=== PATIENT | male | born 1945 | race Caucasian/White ===

== ENCOUNTER 2016-11-12 10:55 | Inpatient (IN) | payer MEDICARE, OTHER ==
[~2016-11-12] VITALS: Ht 175.3 cm; Wt 140.7 kg
[~2016-11-12 10:55] MED LIST: CARV12.52 PO; DOCU100C8 PO; ESCI10TA PO; ESCI20TA PO; INSU100I23 SQ; INSU100I30 SQ; LORC10TA PO; LSNP10T PO; MAGN400O7 PO; OXYC1TAB87 PO; OXYC1TAB95 PO; POLY17PO2 PO; PREG150C PO; TAMS-8 PO
--- NOTE | 2016-11-12 11:00 | NUR ---
Pt admitted to 318 via w/c accompanied by volunteer and family. Pt c/o SOA but does not appear to be in distress. See admission database for assessment info.
--- OUTSIDE RECORDS SUMMARY | 2016-11-12 11:01 | XMS REPORT | Referral Summary ---
Author Author [facility], [facility] [place] Address Unknown Phone Unavailable Care Team Providers Care Senior Product Analyst Name Role Phone Raman Santoro PCP [phone] Encounter VC Date(s): 04/12/15 - 04/12/15 [facility] [place] [facility], [facility] [address] [place] [address]- us Discharge Disposition: 01-Home or Self Care Attending Physician: [facility] Fee, [facility] Admitting Physician: [facility] Betzaida, [facility] Vital Signs No data available for this section Problem List Condition Effective Dates Status Health Status Informant Acute Active pain(Confirmed) At risk for activity Active intolerance(Confirme d)1, 2 At risk for Active injury(Confirmed)3, 4 At risk for unstable Resolved blood glucose level(Confirmed)5 At risk of pressure Active sore(Confirmed) Bowel Resolved dysfunction(Confirme d)6 Diabetes Active mellitus(Confirmed) Fluid Active imbalance(Confirmed) 7 HTN Active (hypertension)(Confi rmed) Impaired skin Active integrity(Confirmed) 8 Impaired spontaneous Resolved ventilation(Confirme d)9 Ineffective airway Resolved clearance(Confirmed) 10 Knowledge Active deficit(Confirmed)11 LELAND on Active CPAP(Confirmed) Pressure ulcer stage Active 2(Confirmed) Urinary Active retention(Confirmed) 12 1Problem updated automatically by system based on initiation of At Risk for Activity Intolerance Plan of [id number] added automatically by system based on initiation of At Risk for Activity Intolerance Plan of [id number] updated automatically by system based on initiation of Risk for Injury Plan of [id number] added automatically by system based on initiation of Risk for Injury Plan of [id number] added automatically by system based on initiation of At Risk for Unstable Blood Glucose Plan of [id number] added automatically by system based on initiation of Bowel Dysfunction Plan of [id number] added automatically by system based on initiation of Fluid Volume Imbalance Plan of [id number] added automatically by system based on initiation of Impaired Skin Integrity Plan of [id number] added automatically by system based on initiation of Impaired Spontaneous Ventilation Plan of [id number] added automatically by system based on initiation of Ineffective Airway Clearance Plan of [id number] added automatically by system based on initiation of Knowledge Deficit Plan of [id number] added automatically by system based on initiation of Urinary Retention Plan of Care Allergies, Adverse Reactions, Alerts Substance Reaction Severity Status codeine Active Medications acetaminophen 325 mg oral tablet 650 mg 2 tabs, Oral, q4hr, Pain Mild (1-3), 0 Refill(s) Start Date: 04/13/15 Status: OrderedamLODIPine 5 mg oral tablet 5 mg 1 tabs, Oral, Daily, 0 Refill(s) Start Date: 05/09/15 Status: OrderedAugmentin 875 mg-125 mg oral tablet 1 tabs, Oral, q12hr, 0 Refill(s) Start Date: 05/09/15 Stop Date: 05/18/15 Status: OrderedCoreg 3.125 mg oral tablet 3.125 mg 1 tabs, Oral, BIDWM, 0 Refill(s) Start Date: 04/22/15 Status: Ordereddexamethasone 4 mg oral tablet See Instructions, 4mg po q12hr 05/10; 4mg po q24hr 05/11-05/12 2mg po q24hr 05/13-05/14 #QS, 0 Refill(s) Start Date: 05/06/15 Status: OrderedDulcolax Laxative 10 mg rectal suppository 10 mg 1 supp, Rectal, BID, Constipation, 0 Refill(s) Start Date: 04/13/15 Status: OrderedFlomax 0.4 mg oral capsule 0.4 mg 1 caps, Oral, Daily, 30 minutes after the same meal, # 30 caps, 0 Refill( s) Start Date: 02/24/14 Status: OrderedLevemir 100 units/mL subcutaneous solution 30 units, SubCutaneous, BID, 0 Refill(s) Start Date: 02/24/14 Status: Orderedlidocaine 5% topical film 1 patches, TransDermal, Daily, # 30 patches, 0 Refill(s) Start Date: 04/27/15 Status: OrderedLyrica 75 mg oral capsule 75 mg 1 caps, Oral, BID, 0 Refill(s) Start Date: 04/22/15 Status: Orderedmagnesium oxide 400 mg (241.3 mg elemental magnesium) oral tablet 400 mg 1 tabs, Oral, BID, 0 Refill(s) Start Date: 05/06/15 Status: Orderedmiconazole 2% topical powder 1 israel, Topical, BID, 0 Refill(s) Start Date: 04/25/15 Status: OrderedMiraLax 17 g, Oral, Daily, 0 Refill(s) Start Date: 05/04/15 Status: OrderedNovoLOG 100 units/mL subcutaneous solution 10 units, SubCutaneous, TIDAC, 0 Refill(s) Start Date: 04/25/15 Status: OrderedTums 500 mg oral tablet, chewable 500 mg 1 tabs, Oral, q4hr, GERD/Heartburn, 0 Refill(s) Start Date: 04/13/15 Status: Orderedvenlafaxine 37.5 mg oral tablet 37.5 mg 1 tabs, Oral, BID, 0 Refill(s) Start Date: 05/04/15 Status: OrderedZofran 4 mg oral tablet 4 mg 1 tabs, Oral, q6hr, Nausea, 0 Refill(s) Start Date: 04/13/15 Status: Ordered Results No data available for this section Immunizations Vaccine Date Refusal Reason influenza virus vaccine, inactivated 04/21/15 Procedures Procedure Date Related Diagnosis Body Site Laminectomy Decompression (Thoracic)1 04/06/15 Cholecystectomy 07/22/75 Tonsillectomy 07/22/51 1auto-populated from documented surgical case Social History Social History Type Response Smoking Status Never smoker Assessment and Plan No data available for this section
[2016-11-12 11:17] VITALS: BP 189/90
[2016-11-12] MEDS ORDERED: PROMETHAZINE HCL INJ 12.5 MG in SODIUM CHLORIDE 25 ML IV PRN (11:35)
[2016-11-12] MEDS ORDERED: DOCUSATE SODIUM 100 MG (COLACE) CAP PO PRN (11:35)
[2016-11-12] MEDS ORDERED: POLYETHYLENE GLYCOL 17 GM (MIRALAX) PACKET PO PRN (11:35)
[2016-11-12] MEDS ORDERED: CALCIUM CARBONATE CHEWABLE 300 MG (TUMS) TABLET PO PRN (11:35)
[2016-11-12] MEDS ORDERED: MAG HYDROX/AL HYDROX/SIMETH 200-200-20/5 ML (MAG-AL PLUS) 30 ML UDC PO PRN (11:35)
[2016-11-12] MEDS ORDERED: ONDANSETRON 4 MG (ZOFRAN) ORAL DISSOLVE TAB PO PRN (11:35)
[2016-11-12] MEDS ORDERED: MAGNESIUM HYDROXIDE 80MG/ML (MILK OF MAGNESIA) 30 ML UDC PO PRN (11:35)
[2016-11-12] MEDS ORDERED: NS FLUSH 3 ML PRN IV (12:00)
[2016-11-12] MEDS ORDERED: NS FLUSH 10 ML PRN IV (12:00)
[2016-11-12 12:03] VITALS: BP 189/90
[2016-11-12] MEDS ORDERED: DEXTROSE 50% 25 GM/50 ML SYRINGE IV PRN (13:20)
[2016-11-12] MEDS ORDERED: GLUCAGON EMERGENCY 1 MG/KIT IM PRN (13:20)
[2016-11-12] MEDS ORDERED: DEXTROSE ORAL GEL (GLUTOSE 40%) 15 GM TUBE PO PRN (13:20)
--- NOTE | 2016-11-12 13:28 | History and Physical (E) ---
History & Physical PCP: Juventino Santoro MD CC: Cough, shortness of breath, fever, diarrhea HPI Gomez Green is a 70 year old male admitted from clinic 11/12 where he was seen for complaints of cough, dyspnea, fever, and diarrhea. Onset of cough was roughly 11/08. Non-productive but persistent now to the point of sore throat. Coughed so much that he had post-tussive emesis. Started having diarrhea 11/10. Has continued through the weekend. Has foul odor and he was immediately concerned about C diff because he has had this before. Has not recently been on antibiotic. Has had LINDA. Has had fever at home, 102 at one point. At home, took some acetaminophen but no other OTC medications. In office today, WBC normal at 8.9 with Hgb 12.1. Plt 164. Chemistry was notable for BUN 31, Cr 2.2. CRP was quite high at 23.05. BNP was not elevated. Strep screen was negative. CXR showed cardiomegaly but no overt pneumonia. On arrival to unit, awake, alert, interactive, oriented. Related history well as outlined above. SpO2 was mildly low at 89-90% so he was placed on 1 L NC. PMH * Diabetes Mellitus Type II * Kidney stones * Prostate cancer - s/p radiation, implants * HTN - recently stopped taking carvedilol due to hypotension * Morbid obesity * Bronchitis * LELAND on CPAP * History of thoracic spinal cord compression * Cervical discitis s/p prolonged antibiotic therapy. Saw Idalia Jessica MD, in [place] for this. * Clostridium difficile infection. PSH * Cholecystectomy * Left Achilles tendon repair * T1/T2 laminectomy due to compression * Spinal biopsy * Penis surgery x 2 ALLERGIES: Please see list at end of report. HOME MEDICATIONS: Please see list at end of report. FH Mom "organ shutdown." She apparently had no cancer or chronic health conditions, liver abscess. Father of colon cancer. Once sister had breast cancer. SH Lives with in their home in [place]. 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 Denies smoking. Drinks alcohol occasionally. No drug use. ROS CONSTITUTION: Weight stable. HEENT: No change in vision or hearing. No sores in mouth. Has had sore throat. Pain in right ear. CV: No chest pain, palpitations. PULM: Per HPI, exam. GI: Nausea and diarrhea. : Some intermittent dysuria in the last few days. MS: No new muscle or joint aches and pains. NEURO: No numbness or tingling. No weakness. INTEG: No rashes, lesions, or sores. ENDO: No heat or cold intolerance. No polydipsia or polyuria. HEME/LYMPH: No easy bruising or bleeding. No swollen glands. PSYCH: No change in mood or behavior. OBJECTIVE Vital Signs Date Time Temp Pulse Resp B/P Pulse Ox O2 Delivery O2 Flow Rate FiO2 11/12/16 12:03 98.8 90 18 189/90 90 Room air 0.00 90 GEN: Awake, alert, oriented. Appears tired. HEENT: EOMI, clear sclerae, mildly dry oral mucosa. No cervical lymphadenopathy. TMs clear bilaterally. Left canal mildly hyperemic. CV: RRR S1 S2 normal with no murmur LUNGS: Coarse rales bilaterally. ABD: Soft, NT/ND with normal bowel sounds. EXTR: 3+ BLE pitting edema with chronic venous stasis changes. INTEG: No new rash. NEURO: No focal motor neuro deficit. Weight: 142.1 kg LABS (Reviewed from clinic:) 11/12 CBC: WBC 8.9, Hgb 12.1, Plt 164 11/12 CMP: Na 135, K 4.9, Cl 101, CO2 21, BUN 31, Cr 2.2, Glu 414, Ca 8.3, AST 26, ALT 16, AlkP 86, Prot 6, Alb 3.3, Bili 0.8. 11/12 CRP: 23.05. 11/12 BNP: 49.7 MICRO 11/12 Blood culture PENDING 11/12 Stool PCR Panel PENDING 0424 Resp PCR Panel PENDING 11/12 Strep Screen (in office) Negative IMAGING 11/12: Imaging from clinic still pending. ASSESSMENT Gomez Green is a 71 year old male admitted from clinic 11/12 with mild acute respiratory distress with URI symptoms including cough, congestion, fever , and diarrhea. WBC was normal on admit but he had elevated CRP. Differential includes viral or bacterial pneumonia. He has history of C diff and this could be recurrent. He has several chronic problems. PLAN * Acute Respiratory Distress: Mild on admit. Oxygen protocol. IS. * Elevated CRP: Viral vs. bacterial. Check blood culture, stool PCR, resp PCR. * Upper Respiratory Infection: Clinic diagnosis. Check viral respiratory panel. Guaifenesin. IS. Follow-up CXR from clinic and consider repeating 2 view in AM. * Diarrhea: Acute. Could be viral. History of C diff. Given high CRP and history , check stool PCR panel. * Dehydration: On the basis of exam. Check UA. NS bolus ordered but he refused IV start. * Acute Kidney Injury: Cr 2.2 on admit, above baseline of about 1.5-1.8. NS bolus ordered on admit but he refused IV start. Encourage PO fluid intake. Monitor trend. * BLE Edema: Acute on chronic. Keep legs elevated. Compression hose. Diuresis deferred because he looks mildly dehydrated. * Fever: By history. Not present on admit. Acetaminophen. * LINDA: Acetaminophen. * F/E/N: IVF as above. Diabetic diet. I&O, daily weight. * Prophylaxis: Enoxaparin * Code Status: Full * Dispo: Inpatient, expecting 2-3 day stay. CHRONIC ISSUES * LELAND: Home CPAP * BPH: No longer on tamsulosin. Observe. * Morbid obesity: Observe. * BLE Edema: Compression hose. * Depression: Citalopram (sub for escitalopram). * Peripheral neuropathy: Pregabalin * Diabetes Mellitus Type II: Hyperglycemia noted on admit. Basal/bolus regimen. Sliding scale. * HLD: Fish oil Allergies/Home Medications Allergies: Coded Allergies: sulfamethoxazole (Verified Allergy, Severe, Renal failure , 11/05/13) trimethoprim (Verified Allergy, Severe, Renal failure , 11/05/13) codeine (Verified Allergy, Unknown, ANXIETY, "CRAWLING THE CEILING", ) Reported Home Medications Scheduled Cyanocobalamin (Vitamin B-12) (Vitamin B-12) 2,000 MCG PO DAILY (Reported) Escitalopram Oxalate (Lexapro) 10 MG PO DAILY (Reported) Insulin Glargine,Hum.rec.anlog (Toujeazael Solostar) 40 UNIT SQ DAILY (Reported) Insulin Lispro (Humalog) 7-9 UNIT SC TIDWM (Reported) Multivitamin (Multi-Vitamin Daily) 1 EACH PO DAILY (Reported) [place] 3 Polyunsat Fatty Acids (Fish Oil) 1,000 MG PO DAILY (Reported) Pregabalin (Lyrica) 100 MG PO BID (Reported) Discontinued Medications Cyanocobalamin (Vitamin B-12) (Vitamin B12) 2,000 MCG PO DAILY (Reported) Docusate Sodium (Docusate Sodium) 100 MG PO BID PRN PRN CONSTIPATION Discontinued Reason: Course completed Insulin Detemir (Levemir) 30 UNIT SQ BID (Reported) Discontinued Reason: Course completed Insulin Lispro (Humalog) 8-10 UNIT SQ TID WITH MEALS (Reported) Discontinued Reason: Course completed Magnesium Hydroxide (Milk of Magnesia 400mg/5ml) 30 ML PO BID PRN PRN CONSTIPATION Discontinued Reason: Course completed Oxycodone HCl/Acetaminophen (Endocet) 1-2 TAB PO Q6H PRN PRN PAIN Discontinued Reason: Course completed Polyethylene Glycol 3350 (Miralax) 17 GM PO DAILY PRN PRN CONSTIPATION Discontinued Reason: Course completed Pregabalin (Lyrica) 100 MG PO BID (Reported) Discontinued Reason: Course completed Copies to: End of Report . ALBA FINNEY MD Nov 12, 2016 13:27
[2016-11-12] MEDS ORDERED: PREG100C2 PO (14:18)
[2016-11-12] MEDS ORDERED: OMG1KC PO (14:19)
[2016-11-12] MEDS ORDERED: MULT-955 PO (14:20)
[2016-11-12] MEDS ORDERED: CYAN250014 PO (14:20)
[2016-11-12] MEDS ORDERED: INSU300I SQ (14:21)
--- NOTE | 2016-11-12 14:21 | NUR ---
MULTIDISCIPLINARY MTG/DR. FINNEY: Pt. was a direct admit from the clinic. Pt. has had a respiratory illness and then developed diarrhea. WBC was normal but his CRP is high. Waiting on further lab results. to review Pt. chest x-ray. Will check for c-diff since Pt. has had in the past. Pt. okay to wear his home CPAP and compression hose. No discharge needs identified at this time.
[2016-11-12] MEDS ORDERED: INSU100I23 SC (14:22)
[2016-11-12 14:33] LABS: BILIRUBIN,URINE Negative (Negative); CLARITY,URINE Clear; COLOR,URINE Yellow; GLUCOSE, URINE (UA) 3+ (Negative); LEUKOCYTE ESTERASE ,URINE Negative (Negative); PH,URINE 5.5 (5.0 - 8.0); UROBILINOGEN,URINE 0.2 mg/dL (0.2-1.0)
[2016-11-12 14:54] LABS: URINE CENTRIFUGED VOLUME 12 mL
[2016-11-12] MEDS ORDERED: CYAN200014 PO (15:12)
--- NOTE | 2016-11-12 15:13 | NUR ---
MED REC COMPLETE--current med list obtained from patient interview conducted by Greg Solis, Pharm. D. Candidate 2017.
[2016-11-12 15:55] VITALS: BP 186/70
--- NOTE | 2016-11-12 16:57 | NUR ---
Pt refuses IV start. States "I do NOT want an IV". Pt was quite adamant about this. Rosy notified; okay to have no IV access. Encouraged pt to drink plenty of fluids.
--- NOTE | 2016-11-12 18:45 | NUR ---
Pt rests in chair at this time. Denies needs. Skin warm dry, intact. Resprs nonlabored, even on 1L NC. Pt is up ad eliot in room. Droplet and contact precautions in place. Call light within reach.
[2016-11-12] MEDS: INSULIN LISPRO 1 UNIT/0.01 ML (HUMALOG) DOSE SC SCH ×3 (18:47→22:15)
[2016-11-12] MEDS: COMPOUNDED BY PHARMACY PO SCH (21:00)
[2016-11-12] MEDS ORDERED: INSULIN GLARGINE 1 UNIT/0.01ML (LANTUS) DOSE SC SCH (21:00)
--- NOTE | 2016-11-12 22:00 | NUR ---
Patient has been up in chair all evening in no apparent distress. Is currently on RA. States he does get real short of air walking to the bathroom. Lungs diminished and tight sounding. Denies sputum. Denies diarrhea since admit. C/O cold then hot, but denies pain.
[2016-11-12] MEDS: PREGABALIN 100 MG (LYRICA) CAPSULE PO SCH (22:11)
[2016-11-12] MEDS: VANCOMYCIN 250 MG/5 ML PO SCH (22:11)
[2016-11-12] MEDS: guaiFENesin ER 600 MG (MUCINEX) TAB PO SCH (22:11)
[2016-11-12] MEDS ORDERED: INSULIN LISPRO 1 UNIT/0.01 ML (HUMALOG) DOSE SC ONE (22:25)
--- NOTE | 2016-11-12 22:25 | NUR ---
Humalog 10 units documented on SS insulin MAR record rather than the one time order.
[2016-11-13 00:04] VITALS: BP 176/82
--- NOTE | 2016-11-13 06:07 | NUR ---
Pt rests in chair throughout the night. Denies pain. Uses home CPAP. No needs at this time.
[2016-11-13 06:17] LABS: BASOPHILS % (AUTO) 0 % (0-2); EOSINOPHILS # (AUTO) 0.1 10^3uL; EOSINOPHILS % (AUTO) 1 % (0-4); LYMPHOCYTES # (AUTO) 2.9 X10^3; MEAN CORPUSCULAR VOLUME 83 FL (80-100); MEAN PLATELET VOLUME 9.7 FL (6.0-9.5); MONOCYTES # (AUTO) 1.1 X10^3; MONOCYTES % (AUTO) 13 % (3-11); NEUTROPHILS # (AUTO) 4.5 X10^3; NEUTROPHILS % (AUTO) 52 % (51-67); PLATELET COUNT 160 10^3uL (150-450)
[2016-11-13 06:19] LABS: ALBUMIN 3.9 g/dL (3.4-5.0); ANION GAP 16.6 MEQ/L (3-15); CALCULATED IONIZED CALCIUM 3.6 mg/dL (3.8-4.6); MAGNESIUM* 1.9 mg/dL (1.6-2.3); TOTAL PROTEIN 7.7 g/dL (6.4-8.5)
[2016-11-13 06:28] LABS: MEAN CORPUSCULAR HEMOGLOBIN 26.5 PG (26.0-34.0)
[2016-11-13 08:19] VITALS: BP 146/80
[2016-11-13] MEDS: INSULIN LISPRO 1 UNIT/0.01 ML (HUMALOG) DOSE SC SCH ×7 (08:33→21:08)
[2016-11-13] MEDS: PREGABALIN 100 MG (LYRICA) CAPSULE PO SCH ×2 (08:34→21:08)
[2016-11-13] MEDS: VANCOMYCIN 250 MG/5 ML PO SCH ×4 (08:34→21:13)
[2016-11-13] MEDS: OMEGA-3 ACID ETHYL ESTERS 1 GM (LOVAZA) CAPSULE PO SCH (08:34)
[2016-11-13] MEDS: CITALOPRAM 10 MG (CELEXA) TABLET PO SCH (08:34)
[2016-11-13] MEDS: CYANOCOBALAMIN 1000 MCG (VITAMIN B-12) TABLET PO SCH (08:34)
[2016-11-13] MEDS: MULTIVITAMIN W/MINERALS (THERAGRAN M) TABLET PO SCH (08:34)
[2016-11-13] MEDS: guaiFENesin ER 600 MG (MUCINEX) TAB PO SCH ×2 (08:34→21:08)
[2016-11-13] MEDS: COMPOUNDED BY PHARMACY PO SCH ×4 (08:34→21:08)
[2016-11-13] MEDS: NS FLUSH 3 ML DAILY IV SCH (08:34)
[2016-11-13] MEDS: ACETAMINOPHEN 325 MG TAB (TYLENOL) PO PRN ×2 (08:36→21:10)
--- NOTE | 2016-11-13 09:17 | Progress Note (E) ---
Progress Note SUBJECTIVE No issues reported overnight. Afebrile. Room air. Good uirne output. (He refused IV access so couldn't give fluid bolus.) Blood sugar improved this AM though still in 200's. CBC stable. Cr improved to 1.86. He feels a bit worse today with head congestion, persistent cough, and sore throat. Discussed findings, plan of care. Agrees to additional day stay to ensure he's improving well before discharge home. OBJECTIVE Vital Signs Date Time Temp Pulse Resp B/P Pulse Ox O2 Delivery O2 Flow Rate FiO2 11/13/16 08:19 97.8 88 20 146/80 92 Room air 11/12/16 15:55 0.00 I & O 11/12/16 11/13/16 Cumulative From/Thru 19:00 07:00 11/12/16 11:17 - 11/13/16 06:05 Intake Total 533 ml 1269 ml 1802 ml Output Total 200 ml 2400 ml 2600 ml Balance 333 ml -1131 ml -798 ml GEN: Awake, alert, oriented. Appears tired. HEENT: EOMI, clear sclerae, mildly dry oral mucosa. No cervical lymphadenopathy. TMs clear bilaterally. Left canal mildly hyperemic. CV: RRR S1 S2 normal with no murmur LUNGS: Less air movement overall. ABD: Soft, NT/ND with normal bowel sounds. EXTR: 3+ BLE pitting edema with chronic venous stasis changes, improved significantly with compression hose. INTEG: No new rash. NEURO: No focal motor neuro deficit. Lab-Past 14 Days, 35 Results 11/12/16 13:43: Adenovirus (PCR) Negative, Bordetella parapertussis DNA (PCR) Negative, Chlamydophila pneumoniae (PCR) Negative, Coronavirus Type 229E (PCR) Negative, Coronavirus Type HKU1 (PCR) Negative, Coronavirus Type NL63 (PCR) Negative, Coronavirus Type OC43 (PCR) Negative, Enterovirus/Rhinovirus (PCR) Negative, Human Metapneumovirus (PCR) Positive*A, Influenza Type A (H1) (PCR) Negative, Influenza Virus Type B (PCR) Negative, Mycoplasma pneumoniae (PCR) Negative, Parainfluenza Type 1 (PCR) Negative, Parainfluenza Type 2 (PCR) Negative, Parainfluenza Type 3 (PCR) Negative, Parainfluenza Type 4 (PCR) Negative, Respiratory Syncytial Virus (PCR) Negative 11/12/16 14:05: Urine Bacteria None seen, Urine Bilirubin Negative, Urine Blood 2+H, Urine Clarity Clear, Urine Collection Type Clean catch, Urine Color Yellow, Urine Glucose (UA) 3+H, Urine Ketones Negative, Urine Leukocyte Esterase Negative, Urine Microscopic RBC 2-5, Urine Nitrite Negative, Urine Protein 3+H, Urine Specific Maple 1.020, Urine Squamous Epithelial Cells 5-10, Urine Urobilinogen 0.2, Urine WBC None seen, Urine pH 5.5, Volume Urine Centrifuged 12 ml 11/12/16 14:19: Stool Adenovirus (PCR) Negative, Stool Astrovirus (PCR) Negative, Stool C. difficile Toxin (PCR) Positive*A, Stool Campylobacter PCR Negative, Stool Cryptosporidium PCR Negative, Stool Cyclospora cayetanensis (PCR) Negative, Stool E coli O157 PCR Negative, Stool E. coli Shiga Toxins Negative, Stool Entamoeba histolytica (PCR) Negative, Stool Enteroaggregative E coli PCR Negative, Stool Enteropathogenic E. coli (PCR Negative, Stool Enterotoxigenic Ecoli PCR Negative, Stool Giardia Lamblia PCR Negative, Stool Norovirus GI/GII PCR Negative, Stool Plesiomonas shigelloides PCR Negative, Stool Rotavirus A PCR Negative, Stool Salmonella PCR Negative, Stool Sapovirus (PCR) Negative, Stool Shigella/EIEC (PCR) Negative, Stool Vibrio (PCR) Negative, Stool Vibrio cholera (PCR) Negative, Stool Yersinia enterocolitica (PCR) Negative 11/13/16 05:45: Alanine Aminotransferase (ALT/SGPT) 43, Albumin 3.9, Albumin/Globulin Ratio 1.026L, Alkaline Phosphatase 112, Anion Gap 16.6H, Aspartate Amino Transf (AST/ SGOT) 41H, BUN/Creatinine Ratio 20, Basophils # (Auto) 0.0, Basophils (%) (Auto ) 0, Blood Urea Nitrogen 37H, Calcium Level 8.7L, Calcium/Ionized Calcium Ratio 3.6L, Calculated Osmolality 286, Carbon Dioxide Level 28, Chloride Level 99, Creatinine 1.86H, Eosinophils # (Auto) 0.1, Eosinophils (%) (Auto) 1, Estimat Glomerular Filtration Rate 43.8, Estimated GFR (Non- 36.2, Glucose Level 267H, Hematocrit 41.00, Hemoglobin 13.1L, Lymphocytes # (Auto) 2.9 , Lymphocytes (%) (Auto) 34, Magnesium Level 1.9, Mean Corpuscular Hemoglobin 26.5, Mean Corpuscular Hemoglobin Concent 32.0, Mean Corpuscular Volume 83, Mean Platelet Volume 9.7H, Monocytes # (Auto) 1.1, Monocytes (%) (Auto) 13H, Neutrophils # (Auto) 4.5, Neutrophils (%) (Auto) 52, Platelet Count 160, Potassium Level 4.7, Red Blood Count 4.94, Red Cell Distribution Width 14.4, Sodium Level 139, Total Bilirubin 0.8#, Total Protein 7.7, White Blood Count 8.70 LABS (Reviewed from clinic:) 11/12 CBC: WBC 8.9, Hgb 12.1, Plt 164 11/12 CMP: Na 135, K 4.9, Cl 101, CO2 21, BUN 31, Cr 2.2, Glu 414, Ca 8.3, AST 26, ALT 16, AlkP 86, Prot 6, Alb 3.3, Bili 0.8. 11/12 CRP: 23.05. 11/12 BNP: 49.7 MICRO 11/12 Blood culture PENDING 11/12 Stool PCR Panel Positive for Clostridium difficile 0424 Resp PCR Panel Positive for Human metapneumovirus 11/12 Strep Screen (in office) Negative IMAGING 11/12: Imaging from clinic still pending. ASSESSMENT Gomez Green is a 71 year old male admitted from clinic 11/12 with mild acute respiratory distress with URI symptoms including cough, congestion, fever , and diarrhea. WBC was normal on admit but he had elevated CRP. Differential included viral or bacterial infection. He was ultimately found to have human metapneumovirus URI and concurrent Clostridium difficile diarrhea. PLAN * Acute Respiratory Distress: Mild on admit, rapidly improved though breath sounds diminished 11/13. Trial of albuterol. Oxygen protocol. Encouraged IS. * Upper Respiratory Infection: Clinic diagnosis. Check viral respiratory panel. Guaifenesin. IS. Follow-up CXR from clinic and consider repeating 2 view in AM. * Diarrhea due to Clostridium difficile: Acute. PCR as noted. Has history of C diff. Given elevated creatinine, borderline for severe C diff. PO vancomycin x 14 days. * Dehydration: Resolving. On the basis of exam. UA consistent with dehydration. NS bolus ordered but he refused IV start. Encouraged PO fluid intake. * Acute Kidney Injury: Improving. Cr 2.2 on admit, 1.86 11/13. NS bolus ordered on admit but he refused IV start. Encourage PO fluid intake. Monitor trend. * BLE Edema: Acute on chronic. Keep legs elevated. Compression hose. Diuresis deferred because he looks mildly dehydrated. * Fever: Resolved. By history. Not present on admit. Acetaminophen. * Elevated CRP: Multifactorial. Blood culture pending but likely attributable to viral URI and C diff. * Sore throat: Lozenge * Nasal Congestion: [place] spray. * LINDA: Acetaminophen. * F/E/N: IVF as above. Diabetic diet. I&O, daily weight. * Prophylaxis: Enoxaparin * Code Status: Full * Dispo: Inpatient. Possible discharge 11/14. CHRONIC ISSUES * LELAND: Home CPAP * BPH: No longer on tamsulosin. Observe. * Morbid obesity: Observe. * BLE Edema: Compression hose. * Depression: Citalopram (sub for escitalopram). * Peripheral neuropathy: Pregabalin * Diabetes Mellitus Type II: Hyperglycemia noted on admit. Basal/bolus regimen. Sliding scale. * HLD: Fish oil ALBA FINNEY MD Nov 13, 2016 09:03
[2016-11-13] MEDS: ALBUTEROL 0.083% NEB SOLUTION 2.5 MG/3 ML VIAL INH PRN ×2 (09:25→16:56)
--- NOTE | 2016-11-13 09:43 | NUR ---
SpO2 90% on Room Air. BS decreased with faint exp wheeze on R base before tx, increase air movement and bilat wheezing after tx. Loose NPC.
[2016-11-13] MEDS: ACIDOPHILUS/LACTOBACILLUS SPOROGENES 1 TABLET PO SCH (13:09)
[2016-11-13] MEDS: SALINE NASAL SPRAY (OCEAN) 45 ML BTL SCH ×2 (13:10→18:45)
--- NOTE | 2016-11-13 16:00 | NUR ---
Patient's blood glucose has remained high throughout the day. Discussed insulin doses with Dr. Gallegos. Patient continues with intermittent non-productive cough.
[2016-11-13 16:16] VITALS: BP 127/38
[2016-11-13] MEDS: HALL'S COUGH DROPS MM PRN ×2 (18:46→21:14)
[2016-11-13] MEDS: INSULIN GLARGINE 1 UNIT/0.01ML (LANTUS) DOSE SC SCH (21:08)
[2016-11-14] VITALS: BP 142/74
[2016-11-14] MEDS: HALL'S COUGH DROPS MM PRN ×2 (06:10→22:01)
--- NOTE | 2016-11-14 06:16 | NUR ---
Pt up in chair throughout the night. frequently c/o coughing. PRN cough drops provided. Resp even and non labored on RA. Independent in room.
[2016-11-14 06:49] LABS: ALBUMIN 3.3 g/dL (3.4-5.0); ANION GAP 13.5 MEQ/L (3-15)
[2016-11-14 07:47] VITALS: BP 160/90
--- NOTE | 2016-11-14 08:07 | NUR ---
NUTRITION ASSESSMENT Level 1 Patient: Gomez Green Age/Sex: 71/M Date Screened: 11-14-16 Weight: 309.5#/140.7 kg Height: 69 inches Primary Diagnosis: acute respiratory distress Diet Order: medium diabetic Relevant labs: glucose 290, BUN 42, creatinine 1.93, C-Diff (+) Food allergies: N Nutrition Assessment Criteria Age over 80: N Body Mass Index (BMI) under 19: N Admission Screening Indicates Risk? 3 points Moderate/High Risk Diagnosis: 3 points TPN or PPN: N NPO or clear liquid diet: N Serum Glucose <70 or >180: 3 points Hgb A1c >6.7: N/A Total: 9 points Risk Screen: __ Patient at low nutritional risk based on available data; reevaluate in 5-7 days __ Patient at moderate nutritional risk based on available data; reevaluate in 3-5 days _X_ Patient at high nutritional risk; complete Nutrition Assessment within 48 hours of admission.
[2016-11-14] MEDS: ACIDOPHILUS/LACTOBACILLUS SPOROGENES 1 TABLET PO SCH (08:28)
[2016-11-14] MEDS: PREGABALIN 100 MG (LYRICA) CAPSULE PO SCH ×2 (08:28→20:55)
[2016-11-14] MEDS: MULTIVITAMIN W/MINERALS (THERAGRAN M) TABLET PO SCH (08:28)
[2016-11-14] MEDS: CITALOPRAM 10 MG (CELEXA) TABLET PO SCH (08:28)
[2016-11-14] MEDS: INSULIN LISPRO 1 UNIT/0.01 ML (HUMALOG) DOSE SC SCH ×6 (08:28→21:43)
[2016-11-14] MEDS: guaiFENesin ER 600 MG (MUCINEX) TAB PO SCH ×2 (08:28→20:54)
[2016-11-14] MEDS: CYANOCOBALAMIN 1000 MCG (VITAMIN B-12) TABLET PO SCH (08:28)
[2016-11-14] MEDS: OMEGA-3 ACID ETHYL ESTERS 1 GM (LOVAZA) CAPSULE PO SCH (08:28)
[2016-11-14] MEDS: COMPOUNDED BY PHARMACY PO SCH ×4 (08:29→20:55)
[2016-11-14] MEDS: SALINE NASAL SPRAY (OCEAN) 45 ML BTL SCH ×3 (08:29→18:31)
[2016-11-14] MEDS: NS FLUSH 3 ML DAILY IV SCH (08:29)
[2016-11-14] MEDS: VANCOMYCIN 250 MG/5 ML PO SCH ×4 (08:29→20:54)
--- NOTE | 2016-11-14 09:39 | NUR ---
NUTRITION ASSESSMENT Level II Patient: Gomez Green Age/Sex: 71/M Date Assessed: 11-14-16 ASSESSMENT Pertinent History: Patient admitted with acute respiratory distress and screened at high nutritional risk secondary to diagnosis and elevated blood sugars. PMHx includes diabetes, kidney stones, prostate cancer, HTN, and C-Diff. Of note, he has C-Diff with this admission. Pt.s weight has a history of severe fluctuations due to fluid; his UBW appears to be ~300#; his most recent documented weight was 322# in December 2015, and that was up 30# with fluid retention and 3+ edema. He was admitted this time weighing 312.6# with 3+ BLE pitting edema and n/v. He lives at home with his . Meds/Nutrition: Lantus, Humalog, Lactobacillus Acidophilus, omega 3 FA's, vitamin B12, MVI Weight: 309.5#/140.7 kg Height: 69 inches Body Mass Index (BMI): 45.8 [place] Body Weight : 160#/72.7 kg % IBW: 193% GASTROINTESTINAL Appetite: good, eating 100% Diet Order: medium diabetic Unintentional loss of >10 lbs. in 3 months: N Difficult to chew/swallow: N Diabetes: Yes Relevant Labs: glucose 290, BUN 42, creatinine 1.93, C-Diff (+) Calculations for Nutritional Assessment Estimated calorie needs: 22-25 kcals/kg = 3,080 kcals (minus 500-1,000 for weight loss) Estimated protein needs: 1.2-1.4 g/kg ABW = 106-124 g./day DIAGNOSIS 1. Nutrition Diagnosis: Altered nutrition-related lab values (glucose) related to endocrine dysfunction as evidenced by blood glucose running 268-477. NUTRITIONAL INTERVENTION Goal: Patient will receive adequate nutrition to meet his needs. Plan: Consider getting a Hgb A1c value to help assess long-term diabetes control. Pt. has diuresed 3.1# since admission so far. Recommend large diabetic diet to better meet his nutritional needs, with an emphasis on protein as calculated above. Will monitor intake for adequacy; expect weight to further decrease with diuresis and improved fluid retention. MONITORING & EVALUATION _X_ Monitor patients menu selections _X_ Monitor patients food intake per nursing notes __ Monitor NPO/clear liquid days _X_ Monitor lab values _X_ Monitor I&O _X_ Other--monitor weight
[2016-11-14] MEDS: ALBUTEROL 0.083% NEB SOLUTION 2.5 MG/3 ML VIAL INH PRN ×2 (10:05→16:20)
[2016-11-14] MEDS ORDERED: DEXTROMETHORPHAN 15 MG/10 ML UDC PO PRN (12:10)
--- NOTE | 2016-11-14 12:42 | Progress Note (E) ---
Progress Note SUBJECTIVE Not getting any rest because of cough. Adding dextromethorphan. Glucose control remains a struggle. Increasing sliding scale. Have already up-titrated prandial insulin dose. He is agreeable to staying an additional day. OBJECTIVE Vital Signs Date Time Temp Pulse Resp B/P Pulse Ox O2 Delivery O2 Flow Rate FiO2 11/14/16 07:47 97.0 76 20 160/90 94 Room air 11/12/16 15:55 0.00 I & O 11/13/16 11/14/16 Cumulative From/Thru 18:59 06:59 11/12/16 11:17 - 11/14/16 06:47 Intake Total 556 ml 533 ml 2891 ml Output Total 800 ml 1500 ml 4900 ml Balance -244 ml -967 ml -2009 ml GEN: Awake, alert, oriented. Appears tired. HEENT: EOMI, clear sclerae, mildly dry oral mucosa. No cervical lymphadenopathy. TMs clear bilaterally. Left canal mildly hyperemic. CV: RRR S1 S2 normal with no murmur LUNGS: Less air movement overall. ABD: Soft, NT/ND with normal bowel sounds. EXTR: 2+ BLE pitting edema with chronic venous stasis changes, improved significantly with compression hose. INTEG: No new rash. NEURO: No focal motor neuro deficit. Lab-Past 14 Days, 35 Results 11/12/16 13:43: Adenovirus (PCR) Negative, Bordetella parapertussis DNA (PCR) Negative, Chlamydophila pneumoniae (PCR) Negative, Coronavirus Type 229E (PCR) Negative, Coronavirus Type HKU1 (PCR) Negative, Coronavirus Type NL63 (PCR) Negative, Coronavirus Type OC43 (PCR) Negative, Enterovirus/Rhinovirus (PCR) Negative, Human Metapneumovirus (PCR) Positive*A, Influenza Type A (H1) (PCR) Negative, Influenza Virus Type B (PCR) Negative, Mycoplasma pneumoniae (PCR) Negative, Parainfluenza Type 1 (PCR) Negative, Parainfluenza Type 2 (PCR) Negative, Parainfluenza Type 3 (PCR) Negative, Parainfluenza Type 4 (PCR) Negative, Respiratory Syncytial Virus (PCR) Negative 11/12/16 14:05: Urine Bacteria None seen, Urine Bilirubin Negative, Urine Blood 2+H, Urine Clarity Clear, Urine Collection Type Clean catch, Urine Color Yellow, Urine Glucose (UA) 3+H, Urine Ketones Negative, Urine Leukocyte Esterase Negative, Urine Microscopic RBC 2-5, Urine Nitrite Negative, Urine Protein 3+H, Urine Specific [place] 1.020, Urine Squamous Epithelial Cells 5-10, Urine Urobilinogen 0.2, Urine WBC None seen, Urine pH 5.5, Volume Urine Centrifuged 12 ml 11/12/16 14:19: Stool Adenovirus (PCR) Negative, Stool Astrovirus (PCR) Negative, Stool C. difficile Toxin (PCR) Positive*A, Stool Campylobacter PCR Negative, Stool Cryptosporidium PCR Negative, Stool Cyclospora cayetanensis (PCR) Negative, Stool E coli O157 PCR Negative, Stool E. coli Shiga Toxins Negative, Stool Entamoeba histolytica (PCR) Negative, Stool Enteroaggregative E coli PCR Negative, Stool Enteropathogenic E. coli (PCR Negative, Stool Enterotoxigenic Ecoli PCR Negative, Stool Giardia Lamblia PCR Negative, Stool Norovirus GI/GII PCR Negative, Stool Plesiomonas shigelloides PCR Negative, Stool Rotavirus A PCR Negative, Stool Salmonella PCR Negative, Stool Sapovirus (PCR) Negative, Stool Shigella/EIEC (PCR) Negative, Stool Vibrio (PCR) Negative, Stool Vibrio cholera (PCR) Negative, Stool Yersinia enterocolitica (PCR) Negative 11/13/16 05:45: Alanine Aminotransferase (ALT/SGPT) 43, Albumin 3.9, Albumin/Globulin Ratio 1.026L, Alkaline Phosphatase 112, Anion Gap 16.6H, Aspartate Amino Transf (AST/ SGOT) 41H, BUN/Creatinine Ratio 20, Basophils # (Auto) 0.0, Basophils (%) (Auto ) 0, Blood Urea Nitrogen 37H, Calcium Level 8.7L, Calcium/Ionized Calcium Ratio 3.6L, Calculated Osmolality 286, Carbon Dioxide Level 28, Chloride Level 99, Creatinine 1.86H, Eosinophils # (Auto) 0.1, Eosinophils (%) (Auto) 1, Estimat Glomerular Filtration Rate 43.8, Estimated GFR (Non- 36.2, Glucose Level 267H, Hematocrit 41.00, Hemoglobin 13.1L, Lymphocytes # (Auto) 2.9 , Lymphocytes (%) (Auto) 34, Magnesium Level 1.9, Mean Corpuscular Hemoglobin 26.5, Mean Corpuscular Hemoglobin Concent 32.0, Mean Corpuscular Volume 83, Mean Platelet Volume 9.7H, Monocytes # (Auto) 1.1, Monocytes (%) (Auto) 13H, Neutrophils # (Auto) 4.5, Neutrophils (%) (Auto) 52, Platelet Count 160, Potassium Level 4.7, Red Blood Count 4.94, Red Cell Distribution Width 14.4, Sodium Level 139, Total Bilirubin 0.8#, Total Protein 7.7, White Blood Count 8.70 11/14/16 05:50: Albumin 3.3L, Anion Gap 13.5, Blood Urea Nitrogen 42H, Calcium Level 8.7L, Carbon Dioxide Level 26, Chloride Level 101, Creatinine 1.93H, Estimat Glomerular Filtration Rate 42.0, Estimated GFR (Non- 34.7, Glucose Level 290H, Phosphorus Level 4.2, Potassium Level 4.4, Sodium Level 137 LABS (Reviewed from clinic:) 11/12 CBC: WBC 8.9, Hgb 12.1, Plt 164 11/12 CMP: Na 135, K 4.9, Cl 101, CO2 21, BUN 31, Cr 2.2, Glu 414, Ca 8.3, AST 26, ALT 16, AlkP 86, Prot 6, Alb 3.3, Bili 0.8. 11/12 CRP: 23.05. 11/12 BNP: 49.7 MICRO 11/12 Blood culture Negative to date 11/12 Stool PCR Panel Positive for Clostridium difficile 0424 Resp PCR Panel Positive for Human metapneumovirus 11/12 Strep Screen (in office) Negative IMAGING 11/12: CXR from office reviewed. ASSESSMENT Gomez Green is a 71 year old male admitted from clinic 11/12 with mild acute respiratory distress with URI symptoms including cough, congestion, fever , and diarrhea. WBC was normal on admit but he had elevated CRP. Differential included viral or bacterial infection. He was ultimately found to have human metapneumovirus URI and concurrent Clostridium difficile diarrhea. PLAN * Acute Respiratory Distress: Mild on admit, rapidly improved though breath sounds diminished 11/13. Trial of albuterol. Oxygen protocol. Encouraged IS. * Upper Respiratory Infection due to Human metapneumovirus: Guaifenesin. IS. Supportive care. * Diarrhea due to Clostridium difficile: Acute. PCR as noted. Has history of C diff. Given elevated creatinine, borderline for severe C diff. PO vancomycin x 14 days. * Dehydration: Resolving. On the basis of exam. UA consistent with dehydration. NS bolus ordered but he refused IV start. Encouraged PO fluid intake. * Acute Kidney Injury: Improving. Cr 2.2 on admit, 1.86 11/13. NS bolus ordered on admit but he refused IV start. Encourage PO fluid intake. Monitor trend. * BLE Edema: Acute on chronic. Keep legs elevated. Compression hose. Diuresis deferred because he looks mildly dehydrated. * Fever: Resolved. By history. Not present on admit. Acetaminophen. * Elevated CRP: Multifactorial. Blood culture pending but likely attributable to viral URI and C diff. * Sore throat: Lozenge * Nasal Congestion: [place] spray. * Cough: Dextromethorphan * LINDA: Acetaminophen. * F/E/N: IVF as above. Diabetic diet. I&O, daily weight. * Prophylaxis: Enoxaparin * Code Status: Full * Dispo: Inpatient. Possible discharge 11/15. Working on better glycemic control and cough. CHRONIC ISSUES * LELAND: Home CPAP * BPH: No longer on tamsulosin. Observe. * Morbid obesity: Observe. * BLE Edema: Compression hose. * Depression: Citalopram (sub for escitalopram). * Peripheral neuropathy: Pregabalin * Diabetes Mellitus Type II: Hyperglycemia noted on admit. Basal/bolus regimen. Sliding scale. * HLD: Fish oil ALBA FINNEY MD Nov 14, 2016 12:42
[2016-11-14] MEDS: ACETAMINOPHEN 325 MG TAB (TYLENOL) PO PRN ×3 (12:55→22:02)
[2016-11-14 16:00] VITALS: BP 138/82
--- NOTE | 2016-11-14 19:30 | NUR ---
Patient has remained on room air throughout the shift. He continues with cough and intermittent headache- complained of a "feeling of sinus pressure." Headache pain was relieved by Tylenol.
--- NOTE | 2016-11-14 20:33 | NUR ---
Pt. requested nebulizer tx. at 1645. BS are clear, tight NPC at this time. Room air 95%.
[2016-11-14] MEDS: INSULIN GLARGINE 1 UNIT/0.01ML (LANTUS) DOSE SC SCH (21:42)
[2016-11-15 00:39] VITALS: BP 138/76
[2016-11-15] MEDS: ACETAMINOPHEN 325 MG TAB (TYLENOL) PO PRN ×2 (06:25→13:11)
--- NOTE | 2016-11-15 06:25 | NUR ---
Tylenol given for headache; Accucheck this morning is 210-sliding scale insulin required. Droplet and contact precautions observed by staff.
[2016-11-15 06:42] LABS: ALBUMIN 3.7 g/dL (3.4-5.0)
[2016-11-15 08:21] VITALS: BP 160/65
[2016-11-15] MEDS: INSULIN LISPRO 1 UNIT/0.01 ML (HUMALOG) DOSE SC SCH ×4 (08:36→13:07)
[2016-11-15] MEDS: VANCOMYCIN 250 MG/5 ML PO SCH ×2 (08:37→13:07)
[2016-11-15] MEDS: SALINE NASAL SPRAY (OCEAN) 45 ML BTL SCH ×2 (08:37→13:07)
[2016-11-15] MEDS: PREGABALIN 100 MG (LYRICA) CAPSULE PO SCH (08:38)
[2016-11-15] MEDS: MULTIVITAMIN W/MINERALS (THERAGRAN M) TABLET PO SCH (08:38)
[2016-11-15] MEDS: CYANOCOBALAMIN 1000 MCG (VITAMIN B-12) TABLET PO SCH (08:38)
[2016-11-15] MEDS: OMEGA-3 ACID ETHYL ESTERS 1 GM (LOVAZA) CAPSULE PO SCH (08:38)
[2016-11-15] MEDS: guaiFENesin ER 600 MG (MUCINEX) TAB PO SCH (08:39)
[2016-11-15] MEDS: CITALOPRAM 10 MG (CELEXA) TABLET PO SCH (08:39)
[2016-11-15] MEDS: ACIDOPHILUS/LACTOBACILLUS SPOROGENES 1 TABLET PO SCH (08:39)
[2016-11-15] MEDS: COMPOUNDED BY PHARMACY PO SCH ×2 (08:43→13:12)
[2016-11-15] MEDS: NS FLUSH 3 ML DAILY IV SCH (08:44)
--- NOTE | 2016-11-15 09:00 | NUR ---
Pt sitting up in chair at this time. Skin warm, dry, intact. Resprs nonlabored, even on RA. Denies needs. Will continue to monitor.
[2016-11-15] MEDS ORDERED: CODE118S2 PO (15:25)
[2016-11-15] MEDS ORDERED: GUAI120016 PO (15:25)
[2016-11-15] MEDS ORDERED: ACID1TAB4 PO (15:25)
[2016-11-15] MEDS ORDERED: VANCORAL PO (15:25)
--- NOTE | 2016-11-15 15:32 | Discharge Instructions (E) ---
Discharge Instructions Instructions * You were evaluated and treated for upper respiratory infection due to a common virus called Human metapneumovirus. This has to run its course. Keep hydrated. It is OK to take acetaminophen for fever and aches, guaifenesin for congestion. Because of persistent cough, codeine/promethazine cough syrup has been prescribed. * You were also found to have recurrent Clostridium difficile diarrhea. You were prescribed vancomycin. Take all antibiotic as prescribed. Do not skip doses even if you feel better. * It is OK to take [id number] probiotic which may help with your recovery from Clostridium difficile. * Your blood sugar was elevated, likely due to current illness. Continue to take insulin as prescribed. Record your blood sugar readings for review by your primary care doctor. Activity Instructions As tolerated. To avoid spreading infection, be sure to use good [id number] handwashing. If bathroom surfaces are soiled, clean with bleach solution. Doctor's Appointment Follow-up with your primary care doctor in 3-5 days. Discharge Diet: Carbohydrate controlled ALBA FINNEY MD Nov 15, 2016 15:19
--- NOTE | 2016-11-15 16:00 | NUR ---
Discharge instructions reviewed with patient; demonstrates understanding. Skin warm, dry, intact. Resprs nonlabored, even on RA. Belongings gathered. Pt dismissed at this time via ambulation accompanied by Vishnu Rizo CNA to private vehicle. Belongings, DC packet, and script sent with patient.
== END 2016-11-15 16:02 | disposition home or self-care (01) | DRG 372 ==
LOC: MED/SURG 10:55
PROVIDERS: ADMIT Internal Medicine; ATTEND Internal Medicine
DX: A04.7 Enterocolitis due to Clostridium difficile (principal); N17.9 Acute kidney failure, unspecified; Z68.42 Body mass index [BMI] 45.0-49.9, adult; J06.9 Acute upper respiratory infection, unspecified; E11.65 Type 2 diabetes mellitus with hyperglycemia; E86.0 Dehydration; R60.0 Localized edema; G47.33 Obstructive sleep apnea (adult) (pediatric); E11.42 Type 2 diabetes mellitus with diabetic polyneuropathy; I10 Essential (primary) hypertension; E66.01 Morbid (severe) obesity due to excess calories; B97.81 Human metapneumovirus as the cause of diseases classified elsewhere; Z79.4 Long term (current) use of insulin; Z85.46 Personal history of malignant neoplasm of prostate
CPT/HCPCS: 36415; 80053; 80069; 81003; 81015; 83735; 85025; 86140; 87040; 87486; 87507; 87581; 87633; 87798; 94640; 94760

== ENCOUNTER → 2016-11-20 | Outpatient (CLI) | payer MEDICARE, OTHER ==
[~2016-11-20] MED LIST changes: +ACID1TAB4 PO; +CODE118S2 PO; +CYAN200014 PO; +CYAN250014 PO; +GUAI120016 PO; +INSU100I23 SC; +INSU300I SQ; +MULT-955 PO; +OMG1KC PO; +PREG100C2 PO; +VANCORAL PO
--- NOTE | 2016-11-20 10:40 | Diagnostic Imaging Report ---
Clinical indication: Patient with sinusitis. Patient having cough and sinus issues. EXAM: Axial CT scan of the maxillofacial structures without IV contrast using fusion protocol. Coronal and sagittal reformations are performed. COMPARISON: None. FINDINGS: PARANASAL SINUSES: FRONTAL: Unremarkable. ETHMOID: There is mild to moderate patchy mucosal thickening in the appearance of air-fluid levels involving the mid to posterior ethmoid sinus region. MAXILLARY: There is near complete consolidation of the right maxillary sinus. There is large air-fluid level with adjacent peripheral mucosal thickening seen involving left maxillary sinus. SPHENOID: There is a large air-fluid level with peripheral mucosal thickening involving the sphenoid sinus. OTHER PARANASAL SINUS FINDINGS: None. NASAL SEPTUM: Relatively midline. No significant bony spurs. VISUALIZED TEMPORAL BONE STRUCTURES: Unremarkable. BONY STRUCTURES: There is hypertrophic anterior spurs involving the visualized cervical spine. There appears to be ossification of the posterior longitudinal ligament at the C3-C4 level which causes some degree of central canal narrowing. There is hypertrophic spurring subchondral cystic or erosive changes involving the atlantoodontoid interval. EXTRACRANIAL SOFT TISSUE/ ORBITS: Unremarkable. IMPRESSION: 1: There is moderate to severe paranasal sinusitis involving the sphenoid sinus, bilateral maxillary sinuses, and ethmoid sinus. 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 Dictated by: Dictated on workstation # [id number]
--- NOTE | 2016-11-20 10:46 | Diagnostic Imaging Report ---
INDICATION: Cough x2 weeks. Comparison with 04/18/2015. FINDINGS: The lungs are well-aerated. There are no infiltrates present. There is mild cardiomegaly present. No evidence of pulmonary edema. There are no interstitial or consolidated infiltrates. No pleural effusion. IMPRESSION: 1. Cardiomegaly with no evidence of congestive failure. 2. No acute infiltrates. These findings were discussed with Dr. Juventino Santoro. Dictated by: Dictated on workstation # [id number]
== END ==
LOC: RAD 10:00
PROVIDERS: ATTEND Family Medicine
DX: R05 Cough (principal); J01.90 Acute sinusitis, unspecified; I51.7 Cardiomegaly; J32.0 Chronic maxillary sinusitis; J32.2 Chronic ethmoidal sinusitis; M50.31 Other cervical disc degeneration, high cervical region
CPT/HCPCS: 71020